=== PATIENT | female | born 1955 | race Caucasian/White ===

== ENCOUNTER → 2016-10-11 | Day surgery (SDC) | payer BC, OTHER ==
[~2016-10-11] VITALS: Ht 174 cm; Wt 101.6 kg
[~2016-10-11] MED LIST: ADVIL200 MG PO; FISH OIL1000 MG PO; GINKGO BILOBA120 M1 PO; GLUCOSAMINE S1000 M1 PO; HYDRODIURIL25 MG PO; MIRALAX17 GM PO; NUCYNTA50 MG PO; PRILOSEC20 MG PO; TYLENOL WITH C1 EACH PO; TYLENOL/COD#31 TAB PO
--- NOTE | ~2016-10-11 | OR ---
PATIENT'S NAME: GARY JACINTO [facility] AGE: 61 Y [address] ROOM: [place] [address] LOCATION: [facility] – [place] ADMIT DATE: 10/11/2016 OR/Procedure Report DISCHARGE DATE: FAMILY PHYSICIAN: Brice Drew MD ATTENDING PHYSICIAN: Harshad Cruz SURGEON: Harshad Cruz MD WARE FINISHER: DATE OF PROCEDURE: 10/11/2016 PREOPERATIVE DIAGNOSIS: History of bladder cancer. POSTOPERATIVE DIAGNOSIS: History of bladder cancer. PROCEDURE PERFORMED: Cystoscopy, bladder biopsy, bilateral retrograde pyelogram. ANESTHESIA: MAC. COMPLICATIONS: None. INDICATION FOR PROCEDURE: The patient is a 61-year-old female with a history of transient cell carcinoma of the bladder. The patient is status post a 6- week course of BCG secondary to an area of carcinoma in situ during her previous TURBT. The patient now presents for followup cystoscopy and bladder biopsy. DETAILS OF PROCEDURE: After informed consent obtained, the patient was taken to the operating room. A MAC anesthetic was applied. She was placed in a dorsal lithotomy position. The groin area was prepped and draped in normal sterile fashion. Cystoscope was introduced into the urethra and bladder without difficulty. The bladder was inspected and no abnormalities were noted. The mucosa was completely within normal limits. Retrograde pyelograms were then taken. An 8-[place] cone-tipped catheter was placed in the right ureteral orifice and contrast was injected. The ureter was normal caliber without filling defects. The renal pelvis was also normal without filling defects. The system also drained well. This was repeated on the left side, which was also normal and drained well. Following this, biopsy forceps were introduced and random biopsies were taken from 3 separate sites of the bladder. Specimens were then sent to Pathology for analysis. The biopsy sites were then fulgurated for hemostasis. Following this, the bladder was empty and the procedure terminated. The patient tolerated the procedure well and was transferred to recovery room in good condition. PATIENT'S NAME: GARY JACINTO [facility] AGE: 61 Y [address] ROOM: [place] [address] LOCATION: [facility] [place] ADMIT DATE: 10/11/2016 OR/Procedure Report DISCHARGE DATE: FAMILY PHYSICIAN: Brice Drew MD ATTENDING PHYSICIAN: Harshad Cruz MD JAIME RAMOS/papa /[id number] CC: Brice Drew MD d: 10/11/162012 t: 10/12/16 [facility], OPERATIVE SUMMARY
[2016-10-11 09:36] LABS: BASOPHIL # 0.1 K/uL (0.0-0.2); BASOPHIL % 1.1 %; EOSINOPHIL # 0.1 K/uL (0.0-0.5); EOSINOPHIL % 2.3 %; HEMATOCRIT 38.6 % (33.0-46.0); HEMOGLOBIN 12.9 g/dL (10.0-15.0); IMMATURE GRANULOCYTE % 0.3 %; LYMPHOCYTE # 1.6 K/uL (0.8-4.0); LYMPHOCYTE % 26.1 %; MCH 29.2 pg (27.0-34.0); MCHC 33.4 gm/dL (32.0-36.5); MCV 87.3 fl (83.0-98.0); MONOCYTE # 0.4 K/uL (0.0-1.0); MONOCYTE % 5.9 %; MPV 9.5 fl (9.4-12.4); NEUTROPHIL # (ANC) 3.9 K/uL (1.8-7.8); NEUTROPHIL % 64.3 %; NRBC % 0 /100WBC (0-0.00); PLATELET COUNT 319 K/uL (150-450); RBC 4.42 M/uL (3.50-5.50); RDW-CV 12.6 % (11.9-14.6); WBC 6.1 K/uL (4.0-11.0)
[2016-10-11 09:56] LABS: ALBUMIN 4.2 gm/dL (3.5-5.0); ALK PHOS 90 IU/L (33-138); ALT 41 IU/L (12-78); ANION GAP 12.5 (10.0-19.0); AST 29 IU/L (10-40); BLOOD UREA NITROGEN 9 mg/dL (6-24); CALCIUM 9.2 mg/dL (8.5-10.5); CHLORIDE 104 mMol/L (96-110); CO2 28 mMol/L (22-32); CREATININE 0.9 mg/dL (0.5-1.1); ESTIMATED GFR (MDRD EQUATION) > 60; POTASSIUM 3.5 mMol/L (3.7-5.1); SODIUM 141 mMol/L (135-145); TOTAL BILIRUBIN 0.7 mg/dL (0.0-1.5); TOTAL PROTEIN 7.3 g/dL (6.0-8.4)
== END ==
LOC: GPOC 10-07 14:00 → GSDC 07:30
PROVIDERS: Urology
PROC: 0TBB8ZX Excision of Bladder, Via Natural or Artificial Opening Endoscopic, Diagnostic (ICD-10-PCS; principal; 2016-10-11)
PROC: BT14YZZ Fluoroscopy of Kidneys, Ureters and Bladder using Other Contrast (ICD-10-PCS; 2016-10-11)
DX: N30.20 Other chronic cystitis without hematuria (principal); Z85.3 Personal history of malignant neoplasm of breast; J45.909 Unspecified asthma, uncomplicated; K21.9 Gastro-esophageal reflux disease without esophagitis; K59.00 Constipation, unspecified; Z79.899 Other long term (current) drug therapy; Z88.8 Allergy status to other drugs, medicaments and biological substances; Z85.51 Personal history of malignant neoplasm of bladder
CPT/HCPCS: J1100; J1956; J2001; J2250; J2405; J7120